=== PATIENT | female | born 1970 | race Caucasian/White ===

== ENCOUNTER 2022-01-08 09:27 | Outpatient (CLI) | payer OTHER, SELFPAY ==
[2022-01-08 21:18] LABS: Albumin* 4.4 g/dL (3.3-5.0); Chloride* 102 mmol/L (96-114)
[2022-01-08 21:19] LABS: Potassium* 4.6 mmol/L (3.6-5.1); Sodium* 137 mmol/L (135-149)
[2022-01-08 21:21] LABS: Aspartate Amino Transferase* 31 U/L (12-35); Bilirubin Total* 0.2 mg/dL (0.1-1.5); Blood Urea Nitrogen* 16 mg/dL (7-30); Carbon Dioxide* 26 mmol/L (20-32); Cholesterol* 201 mg/dL (90-199); Creatinine* 0.7 mg/dL (0.5-1.5); Estimated Glomerular Filt Rate 103 ml/min; Total Protein* 7.2 g/dL (6.0-8.3)
[2022-01-08 21:22] LABS: Alanine Aminotransferase* 28 U/L (4-35); Alkaline Phosphatase* 103 U/L (40-150); Calcium* 9.5 mg/dL (8.4-10.6); Glucose* 99 mg/dL (60-115); HDL Cholesterol* 43 mg/dL (>=50); LDL Cholesterol Calculated 95 mg/dL (<100); Triglycerides* 316 mg/dL (40-149)
== END 2022-01-08 09:28 | disposition home or self-care (01) ==
PROVIDERS: PCP Physician Assistant Medical; Visit Provider Physician Assistant Medical
DX: E11.9 Type 2 diabetes mellitus without complications (principal); Z13.6 Encounter for screening for cardiovascular disorders
CPT/HCPCS: 80053; 80061

== ENCOUNTER 2022-12-16 09:45 | Outpatient (CLI) | payer OTHER, SELFPAY | END 2022-12-16 09:46 | disposition home or self-care (01) | PROVIDERS: PCP Physician Assistant Medical; Visit Provider Physician Assistant | DX: R68.82 Decreased libido (principal); N95.2 Postmenopausal atrophic vaginitis; E66.01 Morbid (severe) obesity due to excess calories; E78.5 Hyperlipidemia, unspecified | CPT/HCPCS: 84403; 84443 ==

== ENCOUNTER 2023-08-18 09:17 | Outpatient (CLI) | payer OTHER, SELFPAY | END 2023-08-18 09:18 | disposition home or self-care (01) | PROVIDERS: PCP Physician Assistant Medical; Visit Provider Physician Assistant Medical | DX: E11.9 Type 2 diabetes mellitus without complications (principal); Z79.84 Long term (current) use of oral hypoglycemic drugs; E78.2 Mixed hyperlipidemia; K76.0 Fatty (change of) liver, not elsewhere classified; E66.01 Morbid (severe) obesity due to excess calories; Z68.42 Body mass index [BMI] 45.0-49.9, adult | CPT/HCPCS: 80053; 80061; 82043; 82570; 84443 ==

== ENCOUNTER 2023-11-08 13:43 | Outpatient (CLI) | payer OTHER, SELFPAY ==
--- NOTE | 2023-11-08 14:00 | CRLHL7_ITS ---
For Patients: As a result of the Cures Act, medical imaging exams and procedure reports are released immediately into your electronic medical record. You may view this report before your referring provider. If you have questions, please contact your health care provider. BILATERAL SCREENING MAMMOGRAM WITH COMPUTER-AIDED DETECTION AND TOMOSYNTHESIS TECHNIQUE: CC and MLO views were obtained. These mammographic images have been obtained using full-field digital technique. These mammographic images were interpreted with the benefit of computer-aided detection. Breast Tomosynthesis was used in this interpretation. COMPARISON FILM: 07/10/21, 08/05/17, 09/08/15. FINDINGS: There are scattered areas of fibroglandular density IMPRESSION: There is no radiographic evidence for malignancy. ASSESSMENT: BI-RADS Category 1: Negative RECOMMENDATION: Routine screening mammogram in 1 year. A lay language report of this examination will be provided to the patient. Deejay Bhakta M.D. Diagnostic Radiologist [email or web address] Transcribed: 2:46 p.mDamaris john/Dictated by: Deejay Bhakta MD @ 11/11/2023 1:14:00 PM (Electronically Signed)
== END 2023-11-08 13:44 | disposition home or self-care (01) ==
PROVIDERS: PCP Physician Assistant Medical; Visit Provider Physician Assistant Medical
DX: Z12.31 Encounter for screening mammogram for malignant neoplasm of breast (principal)
CPT/HCPCS: 77063; 77067

== ENCOUNTER 2023-12-27 07:20 | Outpatient (CLI) | payer OTHER, SELFPAY | END 2023-12-27 07:21 | disposition home or self-care (01) | LOC: NFLDREF 12-28 11:16 | PROVIDERS: PCP Physician Assistant Medical; Referring Provider Physician Assistant Medical; Visit Provider Physician Assistant Medical | DX: R39.9 Unspecified symptoms and signs involving the genitourinary system (principal); N39.0 Urinary tract infection, site not specified; N30.00 Acute cystitis without hematuria | CPT/HCPCS: 87086 ==

== ENCOUNTER 2024-01-18 15:40 | Outpatient (CLI) | payer OTHER, SELFPAY | END 2024-01-18 15:41 | disposition home or self-care (01) | LOC: NFLDREF 01-19 15:01 | PROVIDERS: PCP Physician Assistant Medical; Referring Provider Physician Assistant Medical; Visit Provider Physician Assistant Medical | DX: N39.0 Urinary tract infection, site not specified (principal) | CPT/HCPCS: 87086 ==

== ENCOUNTER 2024-06-21 15:10 | Outpatient (CLI) | payer OTHER, SELFPAY | END 2024-06-21 15:11 | disposition home or self-care (01) | LOC: FRMREF 15:11 | PROVIDERS: PCP Physician Assistant Medical; Visit Provider Physician Assistant Medical | DX: E78.2 Mixed hyperlipidemia (principal); E11.9 Type 2 diabetes mellitus without complications; N39.0 Urinary tract infection, site not specified; Z13.29 Encounter for screening for other suspected endocrine disorder | CPT/HCPCS: 80053; 80061; 82043; 82570; 84443; 87086 ==

== ENCOUNTER 2024-08-06 16:19 | Outpatient (CLI) | payer OTHER, SELFPAY | END 2024-08-06 16:20 | disposition home or self-care (01) | LOC: US 16:19 | PROVIDERS: PCP Physician Assistant Medical; Visit Provider Physician Assistant Medical | DX: R10.11 Right upper quadrant pain (principal); K80.20 Calculus of gallbladder without cholecystitis without obstruction; K76.0 Fatty (change of) liver, not elsewhere classified; K76.9 Liver disease, unspecified | CPT/HCPCS: 76705 ==

== ENCOUNTER 2024-08-21 09:52 | Day surgery (SDC) | payer OTHER, SELFPAY ==
[2024-08-21] VITALS (11 sets, daily range): BP systolic 104–133; BP diastolic 59–87; PULSE 86–103; RESP 16; TEMP 36.7–37.1; O2SAT 91–96; BMI 37.1
[2024-08-21] MEDS: LACTATED RINGERS 1000 ML 1,000 ML 100 ML IV (09:45)
[2024-08-21] MEDS: SODIUM CHLORIDE 0.9 % (FLUSH) 10 ML SYRINGE IVF (10:14)
[2024-08-21] MEDS: CEFAZOLIN 2 GM INJ IVP (13:11)
[2024-08-21] MEDS: BUPIVACAINE 0.5% 30 ML INJECTION (13:33)
--- NOTE | 2024-08-21 13:51 | P.GSOP_ITS ---
Operative Note Date of procedure: 08/21/24 Pre-op diagnosis: Biliary colic Post-op diagnosis: Same Type of Procedure: Laparoscopic cholecystectomy Indications: Patient is a 54-year-old female who presented to clinic with clinical workup and symptoms consistent with biliary colic. Risks and benefits of operative intervention were discussed at length with the patient. Risks included but was not limited to: Bleeding, infection, risk of damage to surrounding structures, possible need for additional procedures, possible need to convert to an open operation and postoperative complications such as pneumonia, pulmonary emboli or RI. All questions and concerns were addressed with the patient agreeing to proceed. Procedure Description: After discussing the risks and benefits of the procedure, the patient signed informed consent.? The operative site was marked and the patient was brought to the operating room and placed on the operating table in supine position.? Care was taken to pad the patient's pressure points.?? The patient was then intubated by anesthesia.?? The operative site was then prepped and draped in the usual sterile fashion.? A time-out was then performed. Entrance to the abdomen was gained via a 5 mm Visiport in the left upper quadrant. The abdomen was insufflated and briefly surveyed for signs of injury. There was none. 11 mm supra umbilical port was placed as well as 2 working ports along the right costal margin. Patient was then placed in reverse [place] position with the right side up. The gallbladder fundus was grasped and retracted cephalad. The infundibulum was grasped. A combination of hook cautery and blunt dissection was used to carefully dissect out the cystic duct and artery until they could clearly be seen entering the gallbladder without any intervening structures. The gallbladder was dissected off the cystic plate to achieve the critical view. Once this was achieved the cystic duct and artery were each clipped with 2 clips proximally and 1 clip distally and transected with the scissors. The gallbladder was then taken off of the liver bed. And removed from the abdomen using an Endo-Catch bag. The gallbladder bed was surveyed for hemostasis. The ports were then removed under direct vision. The umbilical port fascia was closed with 0 Vicryl via 2 interrupted stitches. The skin was closed with absorbable subcuticular suture. Instrument sponge and needle counts were correct at the end of the case. The patient was then woken and transferred to the PACU in stable condition. Findings: Cholelithiasis. Anesthesia: GETA Surgeon: Gifty Arellano MD Estimated blood loss (mL): 5 Specimen: Gallbladder Condition: stable Disposition: PACU
--- NOTE | 2024-08-21 13:52 | W.PM.H&PU ---
History & Physical Update History & Physical Update H&P Reviewed and patient assessed: No changes noted
[2024-08-21] MEDS: fentaNYL 100 MCG/2 ML inj 50 MCG IVP ×2 (14:21→14:24)
[2024-08-21] MEDS: KETOROLAC 15 MG/ML inj IVP (14:24)
[2024-08-21] MEDS: HYDROCODONE-ACETAMIN 5-325 MG 1 TAB PO (14:59)
--- NOTE | 2024-08-21 15:56 | P.ANES_ITS ---
Anesthesia Charges Start Date/Time Anesthesia Start Date: 08/21/24 Anesthesia Start Time: 12:55 Stop Date/Time Anesthesia Stop Date: 08/21/24 Anesthesia Stop Time: 14:10 Coding CPT Codes CPT Codes: ANESTH SURG UPPER ABDOMEN - 91038 ([id number]) P2 - PATIENT W/MILD SYST DISEASE, QK - CELERY CUTTER 2-4 CNCRNT ANES PROC, QX - WIND FARM ENGINEER SVC W/ MD MED DIRECTION
--- NOTE | 2024-08-21 15:56 | W.ANESCHARGE ---
Anesthesia Charges Start Date/Time Anesthesia Start Date: 08/21/24 Anesthesia Start Time: 12:55 Stop Date/Time Anesthesia Stop Date: 08/21/24 Anesthesia Stop Time: 14:10 Coding CPT Codes CPT Codes: ANESTH SURG UPPER ABDOMEN - 62580 ([id number]) P2 - PATIENT W/MILD SYST DISEASE, QK - DOUBLER HELPER 2-4 CNCRNT ANES PROC, QX - SUPERVISOR PHOSPHORIC ACID SVC W/ MD MED DIRECTION
== END 2024-08-21 15:33 | disposition home or self-care (01) ==
LOC: OR 09:53
PROVIDERS: PCP Physician Assistant Medical; Visit Provider Surgery
PROC: 0FT44ZZ Resection of Gallbladder, Percutaneous Endoscopic Approach (ICD-10-PCS; CPT 47562; principal; 2024-08-21 11:15)
DX: K80.10 Calculus of gallbladder with chronic cholecystitis without obstruction (principal); E11.9 Type 2 diabetes mellitus without complications; K76.0 Fatty (change of) liver, not elsewhere classified; E66.01 Morbid (severe) obesity due to excess calories; Z68.42 Body mass index [BMI] 45.0-49.9, adult
CPT/HCPCS: 47562; 00790; 82962; A9270; J0330; J0665; J0690; J1100; J1885; J2371; J2405; J2704; J3010; J3475; J3490; J7120

== ENCOUNTER 2025-02-21 08:45 | Outpatient (CLI) | payer OTHER, SELFPAY | END 2025-02-21 08:46 | disposition home or self-care (01) | LOC: NFLDREF 02-27 06:36 | PROVIDERS: PCP Physician Assistant Medical; Referring Provider Physician Assistant Medical; Visit Provider Nurse Practitioner Family | DX: R30.0 Dysuria (principal); N39.0 Urinary tract infection, site not specified; R35.0 Frequency of micturition; R10.9 Unspecified abdominal pain; R39.15 Urgency of urination | CPT/HCPCS: 87086 ==